=== PATIENT | male | born 1990 | race Caucasian/White ===

== ENCOUNTER 2018-07-09 17:56 | Emergency (ER) | payer SELFPAY ==
[~2018-07-09] VITALS: Ht 167.6 cm; Wt 72.7 kg
[2018-07-09 19:50] VITALS: BP 148/89; PULSE 102
== END 2018-07-09 19:50 | disposition home or self-care (01) ==
LOC: COL.ER 17:56
DX: S60.212A Contusion of left wrist, initial encounter (principal); M54.5 Low back pain; M54.2 Cervicalgia; V43.52XA Car driver injured in collision with other type car in traffic accident, initial encounter